=== PATIENT | male | born 1970 ===

== ENCOUNTER 2022-03-14 16:20 | Emergency (ER) | payer BC ==
[2022-03-14] MEDS ORDERED: Sodium Chloride 0.9% 10 ML Syringe FLUSH PRN (17:34)
[2022-03-14] MEDS ORDERED: Sodium Chloride 0.9% 2.5 ML Syringe FLUSH PRN (17:34)
[2022-03-14] MEDS ORDERED: Ondansetron 4 MG/2 ML SDV IVPUSH ONE (17:57)
[2022-03-14] MEDS ORDERED: Sodium Chloride 0.9% 1,000 ML IV ONE ×2 (17:57→20:39)
[2022-03-14] MEDS ORDERED: HYDROmorphone 1 MG/ML Syringe IVPUSH ONE (17:57)
[2022-03-14 18:29] LABS: CORONAVIRUS COVID-19 NAA NEGATIVE (NEGATIVE); INFLUENZA A NAA NEGATIVE (NEGATIVE); INFLUENZA B NAA NEGATIVE (NEGATIVE)
[2022-03-14 18:59] LABS: CARBON DIOXIDE,CO2 26.7 mmol/L (21.0-32.0); POTASSIUM,K 3.7 mmol/L (3.5-5.1)
[2022-03-14] MEDS ORDERED: Iopamidol 755 MG/ML 500 ML Multipack Bottle IVPUSH STA (19:41)
[2022-03-14] MEDS ORDERED: HYDROmorphone 2 MG/ML Syringe IVPUSH ONE (20:39)
[2022-03-14] MEDS ORDERED: metroNIDAZOLE/Normal Saline 500 MG in Premix Bag 1 BAG IV ONE (20:40)
[2022-03-14] MEDS ORDERED: Piperacillin/Tazobactam 3.375 GM in Sodium Chloride 0.9% 50 ML IV ONE (20:41)
[2022-03-14] MEDS ORDERED: Albuterol/Ipratropium 3.0-0.5 MG/3 ML Neb Soln NEB ONE (21:01)
[2022-03-14] MEDS ORDERED: Ketorolac 30 MG/ML SDV IVPUSH ONE (21:11)
[2022-03-14] MEDS ORDERED: VANCOmycin 1.5 GM/300 ML 1.5 GM in Premix Bag 1 BAG IV ONE (22:00)
== END 2022-03-14 22:20 ==
LOC: MW.ED 16:20
DX: K57.20 Diverticulitis of large intestine with perforation and abscess without bleeding (principal); Z20.822 Contact with and (suspected) exposure to COVID-19
CPT/HCPCS: 0240U; 36415; 74177; 80053; 81003; 83605; 83690; 85025; 87040; 94640; 96361; 96365; 96367; 96375; 96376; 99285; J1170; J1885; J2405; J2543; J3370; J3490; J7030; Q9967; J7620-GY